=== PATIENT | female | born 1985 | race Two or more races ===

== ENCOUNTER 2024-12-15 10:30 | Outpatient (CLI) | payer OTHER | END 2024-12-15 10:40 | disposition home or self-care (01) | LOC: MAMO-SONO 10:30 | DX: R10.2 Pelvic and perineal pain (principal); N60.29 Fibroadenosis of unspecified breast; N60.09 Solitary cyst of unspecified breast; Z12.31 Encounter for screening mammogram for malignant neoplasm of breast ==